=== PATIENT | female | born 1940 | race Caucasian/White ===

== ENCOUNTER 2019-04-20 10:38 | Day surgery (SDC) | payer BC, MEDICARE ==
[~2019-04-20 10:38] MED LIST: ACETAMINOPHEN 1,000 MG/100 ML BTL IVPB ONE; DIAZEPAM 5 MG TABLET PO ONE
[2019-04-20] MEDS ORDERED: LIDOCAINE 2% MDV (20MG/ML) 20ML VIAL IV ONE (10:39)
[2019-04-20] MEDS ORDERED: PROPOFOL 10 MG/ML VIAL IV ONE (10:39)
[2019-04-20] MEDS ORDERED: FENTANYL PF 100MCG/2ML VIAL IV ONE (10:39)
[2019-04-20] MEDS ORDERED: MIDAZOLAM HCL 2MG/2ML VIAL IV ONE (10:39)
[2019-04-20] MEDS ORDERED: RINGERS SOLUTION,LACTATED 1,000 ML IV ONE ×2 (11:15→11:37)
[2019-04-20] MEDS ORDERED: LIDOCAINE 1% W/EPI 1:200,000 MPF 30ML SQ ONE (13:24)
[2019-04-20] MEDS ORDERED: BUPIVACAINE 0.5% W/EPI MPF 30 ML VIAL SQ ONE (13:24)
--- NOTE | 2019-04-25 08:11 | Operative Note ---
DATE OF SURGERY: 04/20/2019 PREOPERATIVE DIAGNOSES: 1. Left carpal tunnel syndrome. 2. Soft tissue neoplasm, left arm. 3. Trigger finger, left ring finger. OPERATION: 1. Left carpal tunnel release. 2. Removal of lipoma, left arm. 3. Trigger finger release, left ring finger. STAFF SURGEON: Trevor Lala MD ANESTHESIA: Local with sedation. PREPARATION: Chloraprep. INDIVIDUAL CONSIDERATIONS: None. PROCEDURE: The patient was taken to the operating room and placed supine on the operating room table. She went ahead and got IV sedation, and then I infiltrated the area in the arm where the lipoma was, the longitudinal wrist crease for the carpal tunnel release, and over the A1 santana of the left ring finger with a 50/50 mixture of 1% lidocaine with epinephrine and 0.5% Marcaine with epinephrine. I then at that point went ahead and operated on the arm neoplasm, which was mid arm laterally. I made about a 3 cm incision through the skin. Once through the skin, I used fingertip dissection to basically find a very well encapsulated soft tissue lipoma, which was about 1.5 cm in diameter. This was basically delivered and sent for specimen. I went ahead after irrigation and closed the skin with interrupted 3-0 nylon in vertical mattress fashion. I then next operated on the trigger finger. Incision was made over the A1 santana volary with longitudinal about 1.5 cm. Sharp dissection carried down through skin. Blunt dissection carried down to the santana retracting the soft tissues and the bundles on either side. A paxton was made in direct view. It was released with scissors proximally and distally and then I could move the digit freely and it would no longer catch. I went ahead and did the carpal tunnel incision. The carpal tunnel incision was volar on the longitudinal wrist crease and then just barely crossing the flexion crease at a 45-degree angle only. Sharp dissection carried down through skin and subcutaneous tissues. Small veins were coagulated with a Bovie. Sharp dissection carried down through the palmar fascia, through the small adductor brevis, then through the transverse metacarpal fascia under direct view distally to the superficial arch and recurrent branch and proximally to the antebrachial fascia. The median nerve was intact but hourglass. After irrigation, I went ahead and closed the carpal tunnel wound and the trigger finger wound with interrupted 4-0 nylon in a vertical mattress fashion. A sterile bulky compressive hand dressing was applied and dressing was applied to the arm wound. The patient tolerated the procedures well. Needle and sponge counts were correct. Estimated blood loss was minimal. She was taken back to recovery in good condition. There were no complications. TAWANA
== END 2019-04-20 14:40 | disposition home or self-care (01) ==
LOC: SUR 10:38
PROVIDERS: ATTEND Orthopaedic Surgery
DX: M65.342 Trigger finger, left ring finger (principal); D17.22 Benign lipomatous neoplasm of skin and subcutaneous tissue of left arm; G56.02 Carpal tunnel syndrome, left upper limb; C50.912 Malignant neoplasm of unspecified site of left female breast; K21.9 Gastro-esophageal reflux disease without esophagitis
CPT/HCPCS: J7120

== ENCOUNTER 2019-07-19 10:33 | Inpatient (IN) | payer BC, MEDICARE ==
[~2019-07-19 10:33] MED LIST changes: -ACETAMINOPHEN 1,000 MG/100 ML BTL IVPB ONE; +CEFAZOLIN 2 Gram 2 GM/50 ML BAG IVPB ONE; +CELECOXIB 100 MG CAPSULE PO ONE; -DIAZEPAM 5 MG TABLET PO ONE; +FAMOTIDINE 20MG TABLET PO ONE; +MECLIZINE 25 MG TABLET PO ONE; +METOCLOPRAMIDE 10 MG TABLET PO ONE; +VANCOMYCIN 1GM/200ML PREMIX 1 GM/200 ML PIGGYBACK IVPB ONE
[2019-07-19] MEDS ORDERED: ROPIVACAINE HCL (NAROPIN) /PF 5MG/ML 20ML VIAL IV ONE (10:34)
[2019-07-19] MEDS ORDERED: MIDAZOLAM HCL 2MG/2ML VIAL IV ONE (10:34)
[2019-07-19] MEDS ORDERED: LIDOCAINE 2% MDV (20MG/ML) 20ML VIAL IV ONE (10:34)
[2019-07-19] MEDS ORDERED: PROPOFOL 10 MG/ML VIAL IV ONE (10:34)
[2019-07-19] MEDS ORDERED: DEXAMETHASONE 4 MG/ML 1ML VIAL IVP ONE (10:34)
[2019-07-19 11:07] LABS: ABO GROUP A; RH TYPE POSITIVE
[2019-07-19] MEDS ORDERED: RINGERS SOLUTION,LACTATED 1,000 ML IV ONE ×2 (11:44→13:07)
[2019-07-19] MEDS ORDERED: TRANEXAMIC ACID 1,000 MG/10 ML ML IU ONE (13:25)
[2019-07-19] MEDS ORDERED: TRANEXAMIC ACID 1,000 MG/10 ML ML IV ONE (13:25)
[2019-07-19] MEDS ORDERED: BUPIVACAINE 0.5% W/EPI MPF 30 ML VIAL SQ ONE (13:25)
[2019-07-19] MEDS ORDERED: BISACODYL 10 MG SUPP RC PRN (13:41)
[2019-07-19] MEDS ORDERED: AL HYDROX/MAG HYDROX 30ML UD PO PRN (13:41)
[2019-07-19] MEDS ORDERED: ACETAMINOPHEN W/ CODEINE 300MG/60MG TABLET PO PRN (13:41)
[2019-07-19] MEDS ORDERED: ONDANSETRON HCL IV 4 MG/2 ML VIAL IVP PRN (13:41)
[2019-07-19] MEDS ORDERED: DIPHENHYDRAMINE HCL 25 MG CAPSULE PO PRN (13:41)
[2019-07-19] MEDS ORDERED: ZOLPIDEM TARTRATE 5 MG TABLET PO PRN (13:41)
[2019-07-19] MEDS ORDERED: NALOXONE 0.4 MG/1 ML VIAL IVP PRN (13:41)
[2019-07-19] MEDS ORDERED: ACETAMINOPHEN 325 MG TAB PO PRN (13:41)
[2019-07-19] MEDS ORDERED: HYDROCODONE/APAP 10/325 TABLET PO PRN (13:41)
[2019-07-19] MEDS ORDERED: KETOROLAC 30 MG/ML VIAL IVP PRN (13:41)
[2019-07-19] MEDS ORDERED: MAGNESIUM HYDROXIDE 30 ML UDC PO PRN (13:41)
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
[2019-07-19] MEDS: POTASSIUM CHLORIDE/D5-0.9%NACL 20 MEQ/1,000 ML BAG IV SCH ×2 (18:11→23:11)
[2019-07-19] MEDS: ACETAMINOPHEN W/ CODEINE 300MG/30MG TABLET PO PRN (18:48)
[2019-07-19] MEDS: DOCUSATE SODIUM 100 MG CAPSULE PO SCH (21:37)
[2019-07-19] MEDS: HYDROMORPHONE HCL 2 MG/ML VIAL IM PRN (21:42)
[2019-07-19] MEDS: VANCOMYCIN 1GM/200ML PREMIX 1 GM/200 ML PIGGYBACK IVPB SCH (23:10)
[2019-07-20] MEDS: ACETAMINOPHEN W/ CODEINE 300MG/30MG TABLET PO PRN ×4 (03:23→16:38)
[2019-07-20] MEDS: HYDROMORPHONE HCL 2 MG/ML VIAL IM PRN (04:23)
[2019-07-20] MEDS: POTASSIUM CHLORIDE/D5-0.9%NACL 20 MEQ/1,000 ML BAG IV SCH ×3 (06:01→23:00)
[2019-07-20 07:23] LABS: HEMATOCRIT 37.5 % (35.0-47.0); HEMOGLOBIN 12.5 gm/dl (11.6-16.0)
[2019-07-20 07:34] LABS: BLOOD UREA NITROGEN 11 mg/dL (8-23); CREATININE 0.6 mg/dL (0.5-0.9); EST GLOMERULAR FILTRATION RATE > 60 mL/min; GLUCOSE,RANDOM 140 mg/dL (74-109)
[2019-07-20] MEDS: FERROUS SULFATE 325 MG TAB PO SCH (10:22)
[2019-07-20] MEDS: ASPIRIN 81 MG TABEC PO SCH (10:23)
[2019-07-20] MEDS: DOCUSATE SODIUM 100 MG CAPSULE PO SCH ×3 (10:23→21:59)
[2019-07-20] MEDS: RIVAROXABAN 10 MG TABLET PO SCH (10:26)
[2019-07-20] MEDS: TRAMADOL HCL 50 MG TABLET PO PRN ×3 (11:20→23:17)
[2019-07-20 12:01] LABS: ANTIBODY SCREEN NEGATIVE (NEGATIVE)
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
--- NOTE | 2019-07-20 15:21 | Physical Therapy Tx Note ---
Physical Therapy Tx Note - Treatment Note Total Time Spent With Patient: 20 Physical Therapy Tx Note: Detail ( The patient was in bathroom when PT arrived. The patient ambulated 100 feet x 1 WBAT on the R LE independently ( supervision for safety only) The patient ambulated on a flight of 3 steps and a flight of 7 steps with use of one railing and stairs with supervision for safety only and cues to breath. The patient's home exercise program was reviewed this am. The patient has met inpt. goals however if pt. stays an extra night for pain management PT will see patient in the am for review of stair climbing.) Physical Therapy Problem List: Detail (Decreased R knee AROM and R LE strength.) Physical Therapy Goals: 1) The patient will be independent with TKA HEP. 2) The patient will ambulate on flights of stairs with supervision for safety using proper technique. Physical Therapy Plan: Patient has passed all inpt. PT skills. Will see patient in am for stairclimbing review if pt. stays at [facility] another night.
[2019-07-20] MEDS: VANCOMYCIN 1GM/200ML PREMIX 1 GM/200 ML PIGGYBACK IVPB SCH (18:18)
[2019-07-20] MEDS: ACETAMINOPHEN W/ CODEINE 300MG/60MG TABLET PO PRN (20:49)
[2019-07-21] MEDS: ACETAMINOPHEN W/ CODEINE 300MG/60MG TABLET PO PRN ×2 (01:14→12:08)
[2019-07-21 06:21] LABS: HEMATOCRIT 40.2 % (35.0-47.0)
[2019-07-21] MEDS: TRAMADOL HCL 50 MG TABLET PO PRN (06:24)
[2019-07-21 06:33] LABS: BLOOD UREA NITROGEN 11 mg/dL (8-23); CREATININE 0.5 mg/dL (0.5-0.9); EST GLOMERULAR FILTRATION RATE > 60 mL/min; GLUCOSE,RANDOM 135 mg/dL (74-109)
[2019-07-21] MEDS: POTASSIUM CHLORIDE/D5-0.9%NACL 20 MEQ/1,000 ML BAG IV SCH (07:00)
[2019-07-21] MEDS: RIVAROXABAN 10 MG TABLET PO SCH (09:38)
[2019-07-21] MEDS: ASPIRIN 81 MG TABEC PO SCH (09:38)
[2019-07-21] MEDS: DOCUSATE SODIUM 100 MG CAPSULE PO SCH (09:38)
[2019-07-21] MEDS: FERROUS SULFATE 325 MG TAB PO SCH (09:38)
--- NOTE | 2019-07-21 09:46 | Physical Therapy Tx Note ---
Physical Therapy Tx Note - Treatment Note Tolerated: Good Total Time Spent With Patient: 35 Physical Therapy Tx Note: Detail (Pt was reclined in bed upon arrival. Pt states that her pain is tolerable but she is extremely tired today. Pt states that she has been doing ex's. Pt completed all ex's x 10 on right knee while in bed. Pt transfered with min assist to sit at edge of bed. Pt required verbal cueing to push off of the bed and not to grab and pull on the walker. Pt ambulated with front wheeled walker from bed to bathroom with contact gaurd assist, she was able to toilet and clean herself independently. Pt then ambulated with front with front wheeled walker to the nurses station, completed the stairs with contact gaurd assist and min cueing for leg placement. Pt ambulated back to room with front wheeled walker and contact gaurd assist. Pt returned to sit at edge of bed and required min assist to supine. Pt had ice machine applied to right knee, compression garments turned back on and nursing call light and table within reach. Pt states that she feels nautious after exertion. Nursing was alerted and patient stated that she felt better after she reclined.) Physical Therapy Problem List: Detail (Decreased R knee AROM and R LE strength.) Physical Therapy Goals: 1) The patient will be independent with TKA HEP. 2) The patient will ambulate on flights of stairs with supervision for safety using proper technique. Prognosis: Good Physical Therapy Plan: Pt completed all goals of PT at this time. Pt is to be discharged from PT. And plans to be discharged from the hospital upon Dr. storey
--- NOTE | 2019-07-21 13:46 | Discharge Summary ---
DATE OF ADMISSION: 07/19/2019 DATE OF DISCHARGE: 07/21/2019 DATE OF SURGERY: 07/19/2019 HISTORY: The patient is s a delightful 79-year-old female who presents with end stage arthrosis of the right knee. She was admitted after right total knee arthroplasty. Postoperatively she has done well. Discharge hemoglobin was 13, did not require transfusion. The plan is to discharge to home in care of her family and home PT visiting nurses have been arranged. She was given Tylenol #3 and Ultram for pain along with Xarelto for DVT prophylaxis. She will take aspirin after the Xarelto is done. She will follow-up in my office in four weeks. Visiting nurse will remove her sutures in two weeks. FINAL DIAGNOSIS/PRIMARY DIAGNOSIS: END STAGE ARTHROSIS RIGHT KNEE. SECONDARY DIAGNOSIS: NONE. OPERATIONS/PROCEDURES: CEMENTED RIGHT TOTAL KNEE ARTHROPLASTY. JOB NUMBER: [id number] MTDD
--- NOTE | 2019-07-26 14:01 | Operative Note ---
DATE OF SURGERY: 07/19/2019 PREOPERATIVE DIAGNOSIS: End-stage arthrosis of the right knee. POSTOPERATIVE DIAGNOSIS: End-stage arthrosis of the right knee. OPERATION: Cemented right total knee arthroplasty using [employer]hew components with a size 4 cobalt chrome Legion femur, a size 3 stemmed tibia baseplate, a 9 mm lipped tibial insert, and a 35 mm all-plastic patella. STAFF SURGEON: Trevor Lala MD ANESTHESIA: Spinal. PREPARATION: Chloraprep. INDIVIDUAL CONSIDERATIONS: None. PROCEDURE: The patient was taken to the operating room, placed supine on the operating room table. She had a successful induction of a spinal anesthetic. The right leg3 was prepped and draped in the usual fashion. The patient had a midline approach to the knee. The limb was elevated and tourniquet was inflated to 250 mmHg. Sharp dissection carried down through skin and subcutaneous tissue. Small veins were coagulated with a Bovie. A medial arthrotomy was performed. The patella was everted and the knee was flexed. The patient had exposed bone in the medial and patellofemoral compartments with bone loss medially. Fat pad was resected, ACL was sacrificed, and provisional anterior meniscectomies were performed. The capsule was released from the medial proximal tibia. The initial femoral rivet tapping machine operator hole was then made freehand. The intramedullary femoral cutting jig was placed. It was cut in 7.0 degrees of valgus and adjusted for a 10 mm resection. The initial transverse cut was then made. The skin guide was placed in 3 degrees of external rotation and the rivet tapping machine operator holes were impacted. It was found that a size 4 would be appropriate but I had to translate it anteriorly 2 mm. The anterior and posterior cuts followed by chamfer cuts were made. Osteophytes removed, and a size 4 trial was placed and found to fit well. The tibia was brought forward, and the remainder of the meniscal remnants removed with a Bovie. The extraarticular tibial cutting jig was placed. It was cut in neutral with a 3-degree AP slope. It was set for a 9 mm resection keyed off the high lateral side and secured with pins. When cutting the tibia, care was taken to preserve the PCL insertion on the tibia. It was found that a size 3 baseplate would be appropriate. It was adjusted for rotation and secured with pins. With a 9 mm trial and femoral trial, there was excellent motion and stability. Ligamentous balance and rotation alignment were thought to be normal. Femoral rivet tapping machine operator holes were impacted and the tibial keel stamp was impacted, and these trial components were removed. The patient had a thick patella and roughly 9 mm of bone was removed freehand. The tourniquet was let down briefly to get bleeders posteriorly and then brought back up again. The knee was then thoroughly irrigated out with pulsatile Betadine and saline to remove any visual or palpable debris. Bony surfaces were then dried. A size 3 stemmed tibia baseplate was cemented into place followed by impaction of the 9 mm lipped tibial insert followed by cementing in the size 4 cobalt chrome femur followed by cementing in the 35 mm patella. The implant surfaces were compressed, excess cement was removed. After the cement had set, there was excellent motion and stability. Ligamentous balance, rotation alignment, and patellofemoral tracking were normal. No lateral release was required. Final irrigation. Tourniquet was let down. Hemostasis was obtained with a Bovie. The capsule was then closed with a running #2 quill, subcu was closed in layers with running 0 quill, skin was closed with ashutosh. Then 1 g of tranexamic acid was mixed with 30 mL of saline and injected into the knee through a sterile 18-gauge needle, and a sterile bulky compressive MINERVA-type dressing was applied. The patient tolerated the procedure well. Needle and sponge counts were correct. Estimated blood loss was minimal, and she was taken back to recovery in good condition. There were no complications. TAWANA
== END 2019-07-21 14:02 | disposition home health service (06) | DRG 470 ==
LOC: SUR 10:33 → MEDSURG 10:34 → SUR 14:41
PROVIDERS: ADMIT Orthopaedic Surgery; ATTEND Orthopaedic Surgery
PROC: 0SRC069 Replacement of Right Knee Joint with Oxidized Zirconium on Polyethylene Synthetic Substitute, Cemented, Open Approach (ICD-10-PCS; principal; 2019-07-19 12:30)
DX: M17.11 Unilateral primary osteoarthritis, right knee (principal); K21.9 Gastro-esophageal reflux disease without esophagitis
CPT/HCPCS: 76942; 80048; 85014; 85018; 86850; 86900; 86901; C1776; J1885; J2405; J3370; J3480; J7120